=== PATIENT | female | born 1950 ===

== ENCOUNTER → 2024-05-20 07:58 | Outpatient (CLI) | payer OTHER ==
[2024-05-20 08:51] LABS: HEMATOCRIT 37.3 % (36.0-45.00); MEAN CELL VOLUME 78.5 fL (80.00-100.00); MEAN CORPUSCULAR HEMOGLOBIN 25.3 pg (27.00-32.0); MEAN CORPUSCULAR HGB CONC 32.3 g/dl (32.0-36.0); RED BLOOD COUNT 4.75 M/uL (4.00-6.00); RED CELL DISTRIBUTION WIDTH 14.7 % (11.5-14.5)
[2024-05-20 08:56] LABS: PLATELET COUNT 121 K/uL (150-450)
[2024-05-20 09:34] LABS: % SATURACION 15.7 % (15-50); ALBUMIN 3.9 gm/dL (3.4-5.0); BILIRUBIN TOTAL 0.41 mg/dL (0.3-1.2); CREATININE SERUM 0.54 mg/dL (0.55-1.02); FERRITIN 124.5 NG/ML (8-252); GFR 110.66; GLOBULINA 3.1 G/DL (2.4-3.5); POTASSIUM 3.94 mEq/L (3.5-5.1)
[2024-05-20 10:32] LABS: FOLIC ACID > 20.00 ng/ml (4.78-20)
[2024-05-21 06:03] LABS: CA 125 11.5 U/mL (0.0-38.1); CA 15-3 8.5 U/mL (0.0-25.0); hav igm Negative (Negative); hcv Non Reactive (Non Reactive); hep b c Negative (Negative); hep b s ag Negative (Negative)
[2024-05-21 10:05] LABS: TRANSFERIN 238 mg/dL (192-364)
[2024-05-21 12:20] LABS: MANUAL PLATELET COUNT 230
[2024-05-21 12:22] LABS: PLATELET ESTIMATE NORMAL (NORMAL)
[2024-05-21 16:08] LABS: hgb a 97.9 % (96.4-98.8); hgb a2 2.1 % (1.8-3.2); hgb f 0 % (0.0-2.0); hgb s 0 % (0.0)
== END | disposition home or self-care (01) ==
LOC: LAB 07:58
PROVIDERS: ATTEND Internal Medicine Hematology & Oncology
DX: D69.6 Thrombocytopenia, unspecified (principal); E06.3 Autoimmune thyroiditis; D51.3 Other dietary vitamin B12 deficiency anemia; D51.1 Vitamin B12 deficiency anemia due to selective vitamin B12 malabsorption with proteinuria; E78.2 Mixed hyperlipidemia; E03.8 Other specified hypothyroidism; E55.9 Vitamin D deficiency, unspecified; D50.8 Other iron deficiency anemias; R79.9 Abnormal finding of blood chemistry, unspecified; I10 Essential (primary) hypertension; R74.02 Elevation of levels of lactic acid dehydrogenase [LDH]; K76.89 Other specified diseases of liver; D63.8 Anemia in other chronic diseases classified elsewhere; D51.0 Vitamin B12 deficiency anemia due to intrinsic factor deficiency

== ENCOUNTER 2025-02-19 11:03 | Outpatient (CLI) | payer OTHER ==
[2025-02-19 11:45] LABS: BASO % 1.1 % (0.1-1.2); EOS # 0.08 (0.04-0.54); EOS % 1.4 % (0.7-7.0); LYMPH # 1.79 (1.18-3.74); LYMPH % 32.1 % (19.3-53.1); MEAN PLATELET VOLUME 13.00 fl (9.4-12.4); MONO # 0.42 (0.24-0.82); MONO % 7.5 % (4.7-12.5); NEUT # 3.21 (1.56-6.13); NEUT % 57.5 % (34.0-71.1); RED CELL DISTRIBUTION WIDTH 15.1 % (11.6-14.4)
[2025-02-19 12:20] LABS: ALT/SGPT 30.0 U/L (12-78); AST/SGOT 21.0 U/L (15-37); BILIRUBIN TOTAL 0.76 mg/dL (0.3-1.2); BUN CREA RATIO 28.0 (7.0-25.0); CREATININE SERUM 0.5 mg/dL (0.55-1.02); FE 93.0 ug/dl (50-170); GFR 120.61; GLOBULINA 3.2 G/DL (2.4-3.5); GLUCOSE FASTING 90.0 mg/dL (65-100); LDH 179.0 U/L (84-246); OSMOLALITY SERUM 287.0 MOSM/KG (275-295)
[2025-02-19 14:38] LABS: FOLIC ACID > 20.00 ng/ml (4.78-20)
== END 2025-02-19 11:11 | disposition home or self-care (01) ==
LOC: LAB 11:03
PROVIDERS: ATTEND Internal Medicine Hematology & Oncology
DX: D50.8 Other iron deficiency anemias (principal); R79.9 Abnormal finding of blood chemistry, unspecified; I10 Essential (primary) hypertension; R74.02 Elevation of levels of lactic acid dehydrogenase [LDH]; K76.89 Other specified diseases of liver; D51.1 Vitamin B12 deficiency anemia due to selective vitamin B12 malabsorption with proteinuria; D51.0 Vitamin B12 deficiency anemia due to intrinsic factor deficiency; D51.8 Other vitamin B12 deficiency anemias; D69.6 Thrombocytopenia, unspecified